=== PATIENT | female | born 1980 | race Asian ===

== ENCOUNTER 2023-09-16 07:12 | Emergency (ER) | payer OTHER ==
[~2023-09-16] VITALS: Ht 157.5 cm; Wt 56.7 kg
[2023-09-16 07:26] VITALS: BP 147/83; TEMP 98
[2023-09-16] MEDS ORDERED: IBUPROFEN 600 MG TABLET ONE (08:06)
[2023-09-16] MEDS ORDERED: CYCLOBENZAPRINE 10 MG TABLET ONE (08:06)
[2023-09-16] MEDS: IBUPROFEN 600 MG TABLET PO ONE (08:09)
[2023-09-16] MEDS: CYCLOBENZAPRINE 10 MG TABLET PO ONE (08:09)
[2023-09-16] MEDS ORDERED: CYCL5TAB PO (08:51)
[2023-09-16 10:01] VITALS: O2SAT 100
== END 2023-09-16 10:01 | disposition home or self-care (01) ==
LOC: ER 07:15
DX: R07.81 Pleurodynia (principal); V49.9XXA Car occupant (driver) (passenger) injured in unspecified traffic accident, initial encounter; Y93.89 Activity, other specified; Y92.411 Interstate highway as the place of occurrence of the external cause; Y99.8 Other external cause status
CPT/HCPCS: 71045-TC